=== PATIENT | female | born 1945 | race Caucasian/White ===

== ENCOUNTER 2017-05-15 07:15 | Outpatient (CLI) | payer OTHER | END 2017-05-15 07:26 | disposition home or self-care (01) | LOC: LAB 07:15 | DX: E11.65 Type 2 diabetes mellitus with hyperglycemia (principal); E10.65 Type 1 diabetes mellitus with hyperglycemia; E03.8 Other specified hypothyroidism; E05.90 Thyrotoxicosis, unspecified without thyrotoxic crisis or storm; E78.2 Mixed hyperlipidemia; E55.9 Vitamin D deficiency, unspecified; N39.0 Urinary tract infection, site not specified; E28.310 Symptomatic premature menopause; E22.1 Hyperprolactinemia; E27.49 Other adrenocortical insufficiency; D64.89 Other specified anemias; E21.2 Other hyperparathyroidism; E24.8 Other Cushing's syndrome ==

== ENCOUNTER 2017-05-15 07:46 | Outpatient (CLI) | payer OTHER | END 2017-05-15 07:48 | disposition home or self-care (01) | LOC: SONOGRAMA 07:46 | DX: E04.1 Nontoxic single thyroid nodule (principal) ==

== ENCOUNTER 2017-12-11 09:20 | Outpatient (CLI) | payer OTHER | END 2017-12-11 09:30 | disposition home or self-care (01) | LOC: MAMO-SONO 09:20 | DX: Z12.31 Encounter for screening mammogram for malignant neoplasm of breast (principal); Z87.898 Personal history of other specified conditions; N60.01 Solitary cyst of right breast; N60.02 Solitary cyst of left breast ==

== ENCOUNTER 2019-03-28 07:46 | Outpatient (CLI) | payer OTHER | END 2019-03-28 08:28 | disposition home or self-care (01) | LOC: SONOGRAMA 07:46 | DX: E04.1 Nontoxic single thyroid nodule (principal) ==

== ENCOUNTER → 2019-03-28 08:08 | Outpatient (CLI) | payer OTHER | END | disposition home or self-care (01) | LOC: LAB 08:08 | DX: E78.2 Mixed hyperlipidemia (principal); E03.8 Other specified hypothyroidism; I11.9 Hypertensive heart disease without heart failure ==